=== PATIENT | female | born 1960 | race American Indian/Alaskan Native ===

== ENCOUNTER 2020-12-04 20:59 | Observation (INO) | payer OTHER ==
[2020-12-05] MEDS ORDERED: ASPIRIN 325 MG TAB PO ONE (00:59)
--- NOTE | 2020-12-05 01:37 | XRay Report ---
CHEST 2 VIEWS INDICATION / CLINICAL INFORMATION: Chest pain. COMPARISON: 2 views of the chest from 09/26/2016. FINDINGS: SUPPORT DEVICES: None. HEART / MEDIASTINUM: No significant abnormality. LUNGS / PLEURA: No significant pulmonary abnormality. No significant pleural effusion. No pneumothora x. ADDITIONAL FINDINGS: No significant additional findings. IMPRESSION: 1. No acute abnormality of the chest. Signer Name: Paco Melendez MD Signed: 12/05/2020 1:32 AM Workstation Name: [id number]
[2020-12-05 01:47] LABS: Basophils % (Auto) 0.4 % (0.0-1.8); Eosinophils # (Auto) 0.1 K/mm3 (0.0-0.4); Eosinophils % (Auto) 1.5 % (0.0-4.3); Hematocrit 42.7 % (30.3-42.9); Hemoglobin 14.3 gm/dl (10.1-14.3); Lymphocytes # (Auto) 2.2 K/mm3 (1.2-5.4); Lymphocytes % (Auto) 42.7 % (13.4-35.0); Mean Corpuscular HGB Conc 34 % (30-34); Mean Corpuscular Volume 89 fl (79-97); Monocytes # (Auto) 0.3 K/mm3 (0.0-0.8); Monocytes % (Auto) 5.4 % (0.0-7.3); Platelet Count 314 K/mm3 (140-440); Red Blood Count 4.82 M/mm3 (3.65-5.03); Red Cell Distribution Width 13.5 % (13.2-15.2)
[2020-12-05 02:08] LABS: Alanine Aminotransferase 12 units/L (7-56); Albumin 4.3 g/dL (3.9-5); BUN/Creatinine Ratio 16; Blood Urea Nitrogen 13 mg/dL (7-17); Calcium 9.5 mg/dL (8.4-10.2); Hemolysis Index 5
--- NOTE | 2020-12-05 06:41 | Emergency Department Report ---
ED General Adult HPI - General Chief complaint: Chest Pain Stated complaint: Headache, left arm weakness, now resolved, painless left eye redness PUI?: No Time Seen by Provider: 12/05/20 06:39 Source: patient, RN notes reviewed, old records reviewed Mode of arrival: Ambulatory Limitations: No Limitations - History of Present Illness Initial comments: This is a 60-year-old female. She is not known to myself previously. She reportedly has a history of thyroid disease, asthma and GERD. She presents to the ER with a few complaints. Her first complaint is headache, starting on Monday (today is Monday), occipital, not sudden or thunderclap in nature, not maximal in intensity, not described as the worst headache of her life, which was associated with left arm weakness and numbness. This is now resolved. There is no loss of vision. She feels lightheaded, like she might fall out or pass out. She has not lost cons ciousness. She feels slightly unsteady on her feet. She does not have focal extremity weakness at this time that she is aware of. Her next complaint is left lateral eye redness, nontraumatic, which is sudden. It is painless. She does not wear glasses or contact lenses currently. Constant, painless, does not radiate anywhere, does not have exacerbating or relieving factors. Patient is up-to-date with Covid vaccination series. Denies Covid symptomatology. -: Gradual, Sudden Location: head, eyes (Left eye) Radiation: non-radiation Consistency: constant (Left eye redness constant. Headache now resolved) Improves with: none Worsens with: none - Related Data Previous Rx's Medication Instructions Recorded Last Taken Type Pantoprazole [Protonix] 40 mg PO QDAY #30 tablet 09/29/16 Unknown Rx oxyCODONE /ACETAMINOPHEN [Percocet 1 tab PO Q4HR #10 tab 09/29/16 Unknown Rx 5/325] Cyclobenzaprine [Flexeril] 10 mg PO QHS PRN #10 tablet 04/18/18 Unknown Rx Ibuprofen [Motrin] 600 mg PO Q8H PRN #20 tablet 04/18/18 Unknown Rx Allergies Allergy/AdvReac Type Severity Reaction Status Date / Time No Known Allergies Allergy Verified 09/27/16 05:19 ED Review of Systems ROS: Stated complaint: WEAKNESS IN LEFT ARM/SHOULDER/EYE PAIN Other details as noted in HPI Constitutional: weakness (Global weakness), other (Denies loss of taste and smell.). denies: fever Eyes: denies: eye pain, eye discharge, vision change ENT: denies: epistaxis Respiratory: denies: cough Cardiovascular: denies: chest pain Gastrointestinal: nausea. denies: abdominal pain, vomiting Musculoskeletal: denies: back pain Neurological: headache, weakness, numbness, abnormal gait ED Past Medical Hx - Past Medical History Previous Medical History?: Yes Hx GERD: Yes Hx Asthma: Yes Additional medical history: Thyroid Disease - Surgical History Past Surgical History?: Yes Additional Surgical History: ectopic - Social History Smoking Status: Never Smoker Substance Use Type: None - Medications Home Medications: Home Medications Medication Instructions Recorded Confirmed Last Taken Type Pantoprazole [Protonix] 40 mg PO QDAY #30 tablet 09/29/16 Unknown Rx oxyCODONE /ACETAMINOPHEN [Percocet 1 tab PO Q4HR #10 tab 09/29/16 Unknown Rx 5/325] Cyclobenzaprine [Flexeril] 10 mg PO QHS PRN #10 tablet 04/18/18 Unknown Rx Ibuprofen [Motrin] 600 mg PO Q8H PRN #20 tablet 04/18/18 Unknown Rx ED Physical Exam - General Limitations: No Limitations General appearance: alert, anxious, obese - Head Head exam: Present: atraumatic, normocephalic - Eye Eye exam: Present: normal appearance, PERRL, EOMI, conjunctival injection (Left temporal conjunctival injection), other (Visual acuity intact to finger counting, color perception, reading at a close distance). Absent: nystagmus - ENT ENT exam: Present: normal exam, normal orophraynx, mucous membranes moist, normal external ear exam - Neck Neck exam: Present: normal inspection, full ROM. Absent: tenderness, meningismus - Respiratory Respiratory exam: Present: normal lung sounds bilaterally. Absent: respiratory distress, wheezes, rales, rhonchi, stridor, chest wall tenderness, accessory muscle use, decreased breath sounds, prolonged expiratory - Cardiovascular Cardiovascular Exam: Present: regular rate, normal rhythm, normal heart sounds. Absent: bradycardia, tachycardia, irregular rhythm, systolic murmur, diastolic murmur, rubs, gallop - GI/Abdominal GI/Abdominal exam: Present: soft. Absent: distended, tenderness, guarding, rebound, rigid, pulsatile mass - Extremities Exam Extremities exam: Present: normal inspection, full ROM, other (2+ pulses noted in the bilateral upper and lower extremities. There is no palpable cord. negative Homans sign. Muscular compartments are soft. The pelvis is stable.). Absent: pedal edema, calf tenderness - Back Exam Back exam: Present: normal inspection, full ROM. Absent: tenderness, CVA tenderness (R), CVA tenderness (L), paraspinal tenderness, vertebral tenderness - Neurological Exam Neurological exam: Present: alert (There is no past-pointing. There is no pronator drift. Left [id number] is clumsy. Right [id number] within normal limits), oriented X3, other (No facial droop. Tongue midline. Extraocular movements intact bilaterally. Facial sensation intact to light touch in V1, V2, V3 distribution bilaterally. 5 and a 5 strength in 4 extremities. Sensation intact to light touch in 4 extremities.) - Psychiatric Psychiatric exam: Present: anxious - Skin Skin exam: Present: warm, dry, intact, normal color. Absent: rash ED Course Vital Signs 12/05/20 12/05/20 00:26 07:46 Temperature 98.5 F Pulse Rate 90 76 Respiratory 18 16 Rate Blood Pressure 157/88 Blood Pressure 144/80 [Left] O2 Sat by Pulse 98 96 Oximetry - Reevaluation(s) Reevaluation #1: 12/05/20 07:19 Differential diagnosis, including the not limited to: Migraine headache, tension headache, cluster headache, complex migraine, subacute stroke, spontaneous left-sided subconjunctival hemorrhage. Assessment and plan: 60-year-old female with 2 complaints. Complaint #1, occipital headache, left-sided weakness and numbness, now resolv ed, with NIH score of 1. Patient is on day 3/4 of symptoms. Symptoms present for greater than 4.5 hours. Therefore, this patient is not a TPA candidate. Symptoms present for greater than 24 hours, NIH score less than 6, therefore, emergent CT angiogram head and neck not indicated. Obtain noncontrast CT scan of the brain. Perform swallow screen, and neurologic checks. Admit this patient to the medical service for presumed subacute stroke. Patient evaluated by stroke neurology, Dr. Rema Watts, Who has personally evaluated this patient, and agrees with this plan of care. Complete #2, left-sided subconjunctival hemorrhage. Supportive care, outpatient follow-up. Patient specifically denies chest pain to myself. We will admit this patient to the medical service if CT scan of the brain does not demonstrate any acute findings that would require transfer. I have discussed this plan of care with the patient, who has articulated understanding. 12/05/20 08:10 Dr Friedman to admit to [facility] head ct negative asa ordered ED Medical Decision Making - Lab Data Result diagrams: 12/05/20 01:14 12/05/20 01:14 Vital Signs 12/05/20 00:26 Temperature 98.5 F Pulse Rate 90 Respiratory 18 Rate Blood Pressure 157/88 O2 Sat by Pulse 98 Oximetry Lab Results 12/05/20 12/05/20 12/05/20 Range/Units 01:14 01:14 04:01 WBC 5.2 (4.5-11.0) K/mm3 RBC 4.82 (3.65-5.03) M/mm3 Hgb 14.3 (10.1-14.3) gm/dl Hct 42.7 (30.3-42.9) % MCV 89 (79-97) fl MCH 30 (28-32) pg MCHC 34 (30-34) % RDW 13.5 (13.2-15.2) % Plt Count 314 (140-440) K/mm3 Lymph % (Auto) 42.7 H (13.4-35.0) % [place] % (Auto) 5.4 (0.0-7.3) % Eos % (Auto) 1.5 (0.0-4.3) % Baso % (Auto) 0.4 (0.0-1.8) % Lymph # (Auto) 2.2 (1.2-5.4) K/mm3 [place] # (Auto) 0.3 (0.0-0.8) K/mm3 Eos # (Auto) 0.1 (0.0-0.4) K/mm3 Baso # (Auto) 0.0 (0.0-0.1) K/mm3 Seg Neutrophils % 50.0 (40.0-70.0) % Seg Neutrophils # 2.6 (1.8-7.7) K/mm3 Sodium 142 (137-145) mmol/L Potassium 4.1 (3.6-5.0) mmol/L Chloride 104.3 (98-107) mmol/L Carbon Dioxide 27 (22-30) mmol/L Anion Gap 15 mmol/L BUN 13 (7-17) mg/dL Creatinine 0.8 (0.6-1.2) mg/dL Estimated GFR > 60 ml/min BUN/Creatinine Ratio 16 % Glucose 120 H (65-100) mg/dL Calcium 9.5 (8.4-10.2) mg/dL Total Bilirubin 0.20 (0.1-1.2) mg/dL AST 12 (5-40) units/L ALT 12 (7-56) units/L Alkaline Phosphatase 75 (35-129) units/L Troponin T < 0.010 < 0.010 (0.00-0.029) ng/mL Total Protein 7.8 (6.3-8.2) g/dL Albumin 4.3 (3.9-5) g/dL Albumin/Globulin Ratio 1.2 % - EKG Data -: EKG Interpreted by Id EKG shows normal: sinus rhythm Rate: normal - EKG Data 12/05/20 07:17 EKG #1 interpreted at 12: 39 AM. Sinus rhythm, normal P wave axis. Normal intervals, poor R wave progression, abnormal EKG, not a STEMI. Appears to be nonspecific changes when compared to prior EKG from September 2016 EKG #2, interpreted at 07: 1 5 AM Sinus rhythm, with a normal P wave axis. Normal axis. Poor R wave progression. Low voltage. Abnormal EKG. Not a STEMI. Unchanged from prior EKG from earlier on today. Both EKGs appear to have nonspecific changes when compared to prior EKG from September 2016. Neither EKG today is a STEMI. - Radiology Data Radiology results: pending, report reviewed, image reviewed [facility] [address] [place] [address] XRay Report Signed Patient: MYCHAL JUAREZ MR#: [id number] 69 : 1960 Acct:[id number] Age/Sex: 60 / F ADM Date: 12/04/20 Loc: ED Attending Dr: Ordering Physician: ED DOC, MD Date of Service: 12/05/20 Procedure(s): XR chest routine 2V Accession Number(s): [id number] cc: ED DOC, Fluoro Time In Minutes: CHEST 2 VIEWS INDICATION / CLINICAL INFORMATION: Chest pain. COMPARISON: 2 views of the chest from 09/26/2016. FINDINGS: SUPPORT DEVICES: None. HEART / MEDIASTINUM: No significant abnormality. LUNGS / PLEURA: No significant pulmonary abnormality. No significant pleural effusion. No pneumothorax. ADDITIONAL FINDINGS: No significant additional findings. IMPRESSION: 1. No acute abnormality of the chest. Signer Name: Paco Melendez MD Signed: 12/05/2020 1:32 AM Workstation Name: [id number] Transcribed By: MN Dictated By: Paco Melendez MD Electronically Authenticated By: Paco Melendez MD Signed Date/Time: 12/05/20131 DD/ 1 CT HEAD WITHOUT CONTRAST INDICATION: lazo, left arm weakness, numbness, left leg weakness TECHNIQUE: All CT scans at this location are performed using CT dose reduction for ALARA by means of automated exposure control. COMPARISON: None available. FINDINGS: BRAIN: No hemorrhage or mass effect are seen. No evidence of acute infarction is noted. ORBITS: Normal as visualized. SOFT TISSUES OF HE AD: Normal. CALVARIUM: Normal. VISUALIZED PARANASAL SINUSES AND MASTOID AIR CELLS: Clear. ADDITIONAL FINDINGS: None. IMPRESSION: No acute intracranial abnormality. Signer Name: Zackary Ny MD Signed: 12/05/2020 7:02 AM Critical care attestation.: If time is entered above; I have spent that time in minutes in the direct care of this critically ill patient, excluding procedure time. ED Disposition Clinical Impression: Subconjunctival hemorrhage of left eye, Left leg weakness, History of headache, CVA (cerebral vascular accident) Disposition: OP ADMIT IP TO THIS HOSP Is pt being admited?: Yes Does the pt Need Aspirin: Yes Condition: Good Referrals: PRIMARY CARE, [Primary Care Provider] - 3-5 Days - Assessment Assessment Interval: Baseline - Level of Consciousness 1a. Level of Consciousness: alert/keenly responsive - LOC Questions 1b. LOC Questions: answers both correctly - LOC Command 1c. LOC Commands: performs tasks correctly - Best Gaze 2. Best Gaze: normal - Visual 3. Visual: no visual loss - Facial Palsy 4. Facial Palsy: normal symmetrical movement - Motor Arm 5a. Motor Arm Left: no drift 5b. Motor Arm Right: no drift - Motor Leg 6a. Motor Leg Left: no drift 6b. Motor Leg Right: no drift - Limb Ataxia 7. Limb Ataxia: present 1 limb (Left lower extremity) - Sensory 8. Sensory: normal - Best Language 9. Best Language: no aphasia - Dysarthria 10. Dysarthria: normal - Extinction and Inattention 11. Extinction/Inattention: no abnormality - Scoring Total Score: 1 Stroke Severity: Minor Stroke
--- NOTE | 2020-12-05 07:24 | Emergency Department Report ---
Blank Doc - Documentation Documentation: [facility] Consult Note # Demographics Consult Type: General Neurology Patient Location: Emergency Room First Name: Dinora Last Name: Dameon Date of : 1960 Age: 60 Gender: Female Time of Initial Page ( Time): 12/05/2020, 06:53 Time of Return Call ( Time): 12/05/2020, 06:53 # HPI History: 60 yo woman who presented with left arm weakness and headache, that all started on monday. Patient also notices some numbness around the left face. # Scores Time of exam and NIHSS ( Time): 12/05/2020, 07:04 Level of Consciousness 1a: [0] = Alert; keenly responsive LOC Questions 1b: [0] = Answers both questions correctly LOC Commands 1c: [0] = Performs both tasks correctly Best Gaze 2: [0] = Normal Visual 3: [0] = No visual loss Facial Palsy 4: [0] = Normal symmetrical movements Motor Arm Left 5a: [0] = No drift Motor Arm Right 5b: [0] = No drift Motor Leg Left 6a: [1] = Drift Motor Leg Right 6b: [0] = No drift Limb Ataxia 7: [0] = Absent Sensory 8: [0] = Normal Best Language 9: [0] = No aphasia Dysarthria 10: [0] = Normal Extinction and Inattention 11: [0] = No abnormality NIHSS Total: 1 # Assessment Impression: left sided weakness out of tpa window stroke is suspected. Other etiologies in differential include: cervical radiculopathy, MS, underlying brain mass. # Plan Thrombolytic/Intervention: NOT IV Thrombolysis or IA Intervention candidate Thrombolytic Exclusion: > 4.5 hours Target Blood Pressure: SBP < 220 Labs: CBC comprehensive metabolic panel lipid panel TSH ua Diagnostic Test: echo with bubble study Therapy/Evaluation: speech/swallow consultation DVT Prophylaxis: heparin 5000 units subcutaneously q 12 hours Other: consult on-site neurology service for full work-up and evaluation recommendations If patient has any neurological deterioration please call me back immediately I have discussed my recommendations with the referring provider Additional Recommendations: Admit for stroke work up MRI brain without contrast MR angiography head and neck without contrast If negative will need to pursue MRI of cervical spine. Start aspirin if CT head results as negative Disposition: admit # Logistics Telemedicine: Interactive 2 way audio and visual telecommunication technology was utilized during this visit
--- NOTE | 2020-12-05 08:07 | Cat Scan Report ---
CT HEAD WITHOUT CONTRAST INDICATION: lazo, left arm weakness, numbness, left leg weakness TECHNIQUE: All CT scans at this location are performed using CT dose reduction for ALARA by means of automated exposure control. COMPARISON: None available. FINDINGS: BRAIN: No hemorrhage or mass effect are seen. No evidence of acute infarction is noted. ORBITS: Normal as visualized. SOFT TISSUES OF HEAD: Normal. CALVARIUM: Normal. VISUALIZED PARANASAL SINUSES AND MASTOID AIR CELLS: Clear. ADDITIONAL FINDINGS: None. IMPRESSION: No acute intracranial abnormality. Signer Name: Zackary Ny MD Signed: 12/05/2020 8:02 AM Workstation Name: [id number]
[2020-12-05] MEDS ORDERED: ASPIRIN 81 MG TAB CHEW PO ONE (08:11)
[2020-12-05 09:42] LABS: Bilirubin,Urine NEG (Negative); Blood,Urine NEG (Negative); Color,Urine Yellow (Yellow); Mucus,Urine FEW /HPF; Protein,Urine <15 mg/dL mg/dL (Negative); RBC,Urine < 1.0 /HPF (0.0-6.0); Urobilinogen,Urine < 2.0 mg/dL (<2.0)
[2020-12-05] MEDS ORDERED: CYCLOBENZAPRINE 10 MG TAB PO PRN (11:46)
[2020-12-05] MEDS ORDERED: hydrALAZINE 20 MG/1 ML INJ IV PRN (11:47)
[2020-12-05] MEDS ORDERED: ACETAMINOPHEN 325 MG TAB PO PRN (11:47)
[2020-12-05] MEDS ORDERED: ONDANSETRON 4 MG/2 ML INJ IV PRN (11:48)
[2020-12-05] MEDS ORDERED: MAGNESIUM HYDROXIDE (MOM) ORAL LIQD UDC PO PRN (11:48)
[2020-12-05] MEDS ORDERED: METOCLOPRAMIDE 10 MG TAB PO PRN (11:48)
[2020-12-05] MEDS ORDERED: PROMETHAZINE 25 MG RECT SUPP PR PRN (11:48)
--- NOTE | 2020-12-05 11:51 | History and Physical Report ---
History of Present Illness Date of examination: 12/05/20 Date of admission: 12/05/20 08:11 Chief complaint: headache and left hand numbness History of present illness: This is a 60-year-old -[place] female with history of ?thyroid disease, asthma and GERD presented to the hospital with complaints of left-sided arm weakness and numbness for the past 3 days. 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 Her headache resolved subsequently but she continued to have left arm weakness and numbness. Patient also complains of left facial numbness and states that she is unable to put weight on her left leg. She first thought she might have a muscle spasm but her symptoms persisted. Today also she noticed her left lateral thigh redness which is sudden and painless, not associated with any blurred vision. Patient is up-to-date with Covid vaccination series. Patient was admitted to the hospital for possible stroke work-up. Her initial work-up in the ER showed normal CT head, pretty unremarkable serum chemistry. Patient is able to speak without any difficulty and does not endorse any swallowing difficulties Review of System: Constitutional: no fever, no chills, no weight loss Ears, eyes, nose, mouth and throat: no nasal congestion, no nasal discharge, no sinus pressure, no vision change, no red eye. Neck: No neck pain or rigidity. Cardiovascular: No chest pain, no orthopnea, no palpitations, no leg swelling Respiratory: No shortness of breath, no cough, no congestion, no wheezing Gastrointestinal: no abdominal pain, no nausea, no vomiting Genitourinary : no dysuria, no hematuria Musculoskeletal: no joint swelling or muscle ache Integumentary: no rash, no pruritis Neurological: no parathesias, +left hand numbness, no tingling Endocrine: no cold or heat intolerance, no polyuria or polydipsia Hematologic/Lymphatic: no easy bruising, no easy bleeding, no gland swelling Allergic/Immunologic: no urticaria, no angioedema. Past History Past Medical History: GERD, other (Asthma, arthritis) Past Surgical History: Other (Unilateral salpingo-oophorectomy) Social history: no significant social history. denies: smoking, alcohol abuse Family history: denies: no significant family history Medications and Allergies Allergies Allergy/AdvReac Type Severity Reaction Status Date / Time No Known Allergies Allergy Verified 09/27/16 05:19 Home Medications Medication Instructions Recorded Confirmed Last Taken Type Aspirin EC [Halfprin EC] 81 mg PO QDAY #30 tablet. 12/07/20 Unknown Rx Cyclobenzaprine [Flexeril 10 MG 10 mg PO QHS PRN #10 tablet 12/07/20 Unknown Rx TAB] Gabapentin 100 mg PO Q8HR #14 capsule 12/07/20 Unknown Rx Active Meds: Active Medications Acetaminophen (Acetaminophen 325 Mg Tab) 650 mg PO Q4H PRN PRN Reason: Pain MILD(1-3)/Fever >100.5/TATE Aspirin (Aspirin Ec 325 Mg Tab) 325 mg PO QDAY ADDIE Atorvastatin Calcium (Atorvastatin 40 Mg Tab) 40 mg PO QHS ADDIE Bisacodyl (Bisacodyl 10 Mg Rect Supp) 10 mg FL QDAY PRN PRN Reason: Constipation Cyclobenzaprine HCl (Cyclobenzaprine 10 Mg Tab) 10 mg PO QHS PRN PRN Reason: Muscle Spasm Docusate Sodium (Docusate Sodium 100 Mg Cap) 100 mg PO BID ADDIE Enoxaparin Sodium (Enoxaparin 40 Mg/0.4 Ml Inj) 40 mg SUB-Q QDAY@2200 ADDIE; Protocol Hydralazine HCl (Hydralazine 20 Mg/1 Ml Inj) 5 mg IV Q30MIN PRN PRN Reason: Hypertension Magnesium Hydroxide (Magnesium Hydroxide (Mom) Oral Liqd Udc) 30 ml PO Q4H PRN PRN Reason: Constipation Metoclopramide HCl (Metoclopramide 10 Mg Tab) 10 mg PO Q6H PRN PRN Reason: Nausea And Vomiting Ondansetron HCl (Ondansetron 4 Mg/2 Ml Inj) 4 mg IV Q8H PRN PRN Reason: Nausea And Vomiting Oxycodone/Acetaminophen (Oxycodone /Acetaminophen 5-325mg Tab) 1 tab PO Q4HR [facility] Pantoprazole Sodium (Pantoprazole 40 Mg Tab) 40 mg PO QDAY [facility] Promethazine HCl (Promethazine 25 Mg Rect Supp) 25 mg FL Q6H PRN PRN Reason: Nausea And Vomiting Sodium Chloride (Sodium Chloride 0.9% 10 Ml Flush Syringe) 10 ml INJ PRN PRN PRN Reason: LINE FLUSH Exam - Physical Exam Narrative exam: GENERAL: well-developed and well-nourished -[place] female lying on bed appeared to be in no discomfort. HEENT: Normocephalic. Atraumatic. No conjunctival congestion or icterus. Patient has moist mucous membranes. NECK: Supple. Trachea midline. CHEST/LUNGS: Clear to auscultated bilaterally, breathing nonlabored. No wheezes crackles or rhonchi. HEART/CARDIOVASCULAR: Regular in rate and rhythm. S1 and S2 positive. ABDOMEN: Abdomen is soft, nontender. Patient has normal bowel sounds. SKIN: There is no rash. Warm and dry. NEURO: No focal motor deficit. Follows command. MUSCULOSKELETAL: No joint effusion or tenderness. EXTRIMITY: No edema, no cyanosis or clubbing. PSYCH: Cooperative. - Constitutional Vitals: Temp Pulse Resp BP Pulse Ox 98.5 F 76 16 144/80 96 12/05/20 00:26 12/05/20 07:46 12/05/20 07:46 12/05/20 07:46 12/05/20 07:46 HEART Score - HEART Score Troponin: Troponin T < 0.010 ng/mL (0.00-0.029) 12/05/20 07:06 Results - Labs CBC & Chem 7: 12/05/20 01:14 12/05/20 01:14 Labs: Abnormal lab results 12/05/20 12/05/20 12/05/20 Range/Units 01:14 01:14 07:06 Lymph % (Auto) 42.7 H (13.4-35.0) % Glucose 120 H (65-100) mg/dL TSH 5.630 H (0.270-4.200) mlU/mL - Imaging and Cardiology CT Scan - head: report reviewed Assessment and Plan Possible acute CVA -- We will admit the patient to remote telemetry - We'll place on aspirin and statin, will consult neurology - CT scan of the head obtained in the ER and shows - We will get MRI of the head, carotid Doppler, 2-D echocardiogram - We will also get hemoglobin A1c level and fasting lipid panel - Allow permissive hypertension, will hold BP meds if patient is taking any at home - Consult PTOT and speech therapist - Keep the patient nothing by mouth for now, monitor blood glucose - Further management will be based on pending lab results and imaging studies History of asthma, scheduled nebulizer breathing treatment as needed History of GERD - We'll place on GI prophylaxis to avoid stress ulcer DVT prophylaxis - Place on DVT prophylaxis
[2020-12-05] MEDS ORDERED: oxyCODONE /ACETAMINOPHEN 5-325MG TAB PO PRN (12:34)
[2020-12-05] MEDS: DOCUSATE SODIUM 100 MG CAP PO SCH (22:21)
[2020-12-05] MEDS: ENOXAPARIN 40 MG/0.4 ML INJ SUB-Q SCH (22:22)
[2020-12-06 06:17] LABS: Chol/HDL Ratio 3.22 %
[2020-12-06] MEDS: ASPIRIN EC 325 MG TAB PO SCH (09:56)
[2020-12-06] MEDS: DOCUSATE SODIUM 100 MG CAP PO SCH ×2 (09:56→21:34)
[2020-12-06] MEDS: PANTOPRAZOLE 40 MG TAB PO SCH (09:56)
--- NOTE | 2020-12-06 14:24 | Electrocardiograph Report ---
[facility] Test Date: 2020-12-05 Test Time: 00:35:14 Pat Name: MYCHAL JUAREZ Department: Room: A480 Gender: F Compliance Officer: ALEXANDER : 1960 Requested By: LEWIS MONTES DE OCA Order Number: [id number] Reading MD: Yeni Meza Measurements Intervals [place] Rate: 80 P: 36 [place]: 134 QRS: 2 QRSD: 73 T: 36 QT: 368 QTc: 425 Interpretive Statements Sinus rhythm No previous ECG available for comparison Electronically Signed On 12-06-2020 14:24:50 EDT by Yeni Meza
--- NOTE | 2020-12-06 14:28 | Electrocardiograph Report ---
[facility] Test Date: 2020-12-05 Test Time: 07:15:06 Pat Name: MYCHAL JUAREZ Department: Room: A480 1 Gender: F Director Of Digital Platforms: CHINO : 1960 Requested By: LEWIS MONTES DE OCA Order Number: [id number] Reading MD: Yeni Meza Measurements Intervals [place] Rate: 72 P: 18 [place]: 145 QRS: 6 QRSD: 76 T: 6 QT: 391 QTc: 429 Interpretive Statements Sinus rhythm Low voltage, precordial leads Consider old anteroseptal infarct Compared to ECG 12/05/2020 00:35:14 No significant change Electronically Signed On 12-06-2020 14:27:42 EDT by Yeni Meza
--- NOTE | 2020-12-06 15:21 | Progress Note ---
Assessment and Plan Possible acute CVA --Continue aspirin and statin - CT scan of the head obtained in the ER and ahowed n acute processo - follow MRI/MRA of the head, 2-D echocardiogram - Consult PTOT --Placed on cardiac diet History of asthma, scheduled nebulizer breathing treatment as needed History of GERD - We'll place on GI prophylaxis to avoid stress ulcer DVT prophylaxis - Place on DVT prophylaxis Disposition: Pending MRI/MRA head and neck. Wait for PT eval. Discharge planning based on MRI results Subjective Date of service: 12/06/20 Interval history: Patient seen and examined. Medical records and medication list reviewed. No acute event overnight noted by the RN. Patient denies any chest pain or difficulty breathing. Patient is tolerating diet. Continue to complain of left hand and left leg numbness She is able to ambulate and no difficulty in speech and swallowing MRI brain pending Discussed plan of care at bedside with patient. Objective - Exam Narrative Exam: GENERAL: well-developed and well-nourished -[place] female lying on bed appeared to be in no discomfort. HEENT: Normocephalic. Atraumatic. No conjunctival congestion or icterus. Patient has moist mucous membranes. NECK: Supple. Trachea midline. CHEST/LUNGS: Clear to auscultated bilaterally, breathing nonlabored. No wheezes crackles or rhonchi. HEART/CARDIOVASCULAR: Regular in rate and rhythm. S1 and S2 positive. ABDOMEN: Abdomen is soft, nontender. Patient has normal bowel sounds. SKIN: There is no rash. Warm and dry. NEURO: No focal motor deficit. Follows command. MUSCULOSKELETAL: No joint effusion or tenderness. EXTRIMITY: No edema, no cyanosis or clubbing. PSYCH: Cooperative. - Constitutional Vitals: Vital Signs - 12hr 12/06/20 12/06/20 12/06/20 05:00 06:00 08:00 Temperature 97.9 F Pulse Rate 67 75 Pulse Rate [ 78 Apical] Pulse Rate [ 78 From Monitor] Respiratory 16 18 Rate Blood Pressure 112/67 O2 Sat by Pulse 98 97 Oximetry 12/06/20 11:13 Temperature 98.3 F Pulse Rate 74 Pulse Rate [ Apical] Pulse Rate [ From Monitor] Respiratory 18 Rate Blood Pressure 106/63 O2 Sat by Pulse 95 Oximetry - Labs CBC & Chem 7: 12/05/20 01:14 12/05/20 01:14 HEART Score - HEART Score Troponin: Troponin T < 0.010 ng/mL (0.00-0.029) 12/05/20 07:06
[2020-12-06] MEDS: ENOXAPARIN 40 MG/0.4 ML INJ SUB-Q SCH (21:34)
[2020-12-07] MEDS: ASPIRIN EC 325 MG TAB PO SCH (10:30)
[2020-12-07] MEDS: DOCUSATE SODIUM 100 MG CAP PO SCH ×2 (10:30→23:13)
[2020-12-07] MEDS: PANTOPRAZOLE 40 MG TAB PO SCH (10:30)
[2020-12-07] MEDS ORDERED: LORazepam 2 MG/ML VIAL IV ONE (12:00)
--- NOTE | 2020-12-07 13:52 | Magnetic Resonance Report ---
MR MRA/MRV head wo con, MR brain wo con INDICATION / CLINICAL INFORMATION: stroke. TECHNIQUE: Multiplanar, multisequence MRI of the brain. MRA of the head. 3-D/MIP reformats postprocessed. Percentage stenosis is determined by direct quantit ative measurements of distal internal carotid artery diameter compared with normal reference segments or by criteria similar to NASCET where applicable. COMPARISON: December 05, 2020 CT FINDINGS: BRAIN: Intracranial: No restricted diffusion. No hemorrhage. Ventricular caliber is normal. No extra-axial c ollection. No mass. No herniation. Orbits: No significant abnormality of visualized orbits. Sinuses/mastoid: No significant abnormality of visualized sinuses and mastoid air cells. Additional findings: None. MRA HEAD: Intracranial vertebral arteries: No occlusion or significant stenosis. Basilar artery: No occlusion or significant stenosis. Posterior cerebral arteries: No occlusion or significant stenosis. Intracranial internal carotid arteries: No occlusion or significant stenosis. Anterior cerebral arteries: No occlusion or significant stenosis. Middle cerebral arteries: No occlusion or significant stenosis. No aneurysm. Additional findings: None. IMPRESSION: 1. MRI Brain: No acute intracranial abnormality. 2. MRA Head: No occlusion or hemodynamically significant stenosis. Signer Name: Buck Lizama MD Signed: 12/07/2020 1:47 PM Workstation Name: [id number]
--- NOTE | 2020-12-07 14:51 | Discharge Summary ---
Providers - Providers Date of Admission: 12/05/20 08:11 Date of discharge: 12/07/20 Attending physician: YAJAIRA BARFIELD 12/05/20 11:48 Consult to Case Management [CONS] Routine Services Needed at Discharge: Phone Counselor Notified:: egg caser Consult to Dietitian/Nutrition [CONS] Routine Physician Instructions: Reason For Exam: Reason for Consult: Nutrition Recommendations Reason for Consult: Diet education Occupational Therapy Evaluate and Treat [CONS] Routine Comment: Reason For Exam: Neuro deficits Physical Therapy Evaluation and Treat [CONS] Routine Comment: Reason For Exam: Neuro deficits 12/05/20 11:51 Consult to Physician [CONS] Routine Comment: Consulting Provider: SABINA EDWARD Physician Instructions: Reason For Exam: cva 12/06/20 15:57 Speech Therapy Evaluation and Treat [CONS] Routine Reason For Exam: Neuro deficits Primary care physician: DIRECTOR PART Hospitalization Condition: Good Final Discharge Diagnosis (Prints w/discharge instructions): --CVA, ruled out. --Peripheral neuropathy. --Obesity Time spent for discharge: 34 minutes Core Measure Documentation - Palliative Care Palliative Care/ Comfort Measures: Not Applicable - Core Measures Any of the following diagnoses?: none Exam - Constitutional Vitals: Temp Pulse Resp BP Pulse Ox 98.1 F 81 15 133/76 97 12/07/20 07:38 12/07/20 13:03 12/07/20 13:03 12/07/20 07:38 12/07/20 13:03 Plan Activity: advance as tolerated Weight Bearing Status: Weight Bear as Tolerated Diet: low fat, low salt Additional Instructions: Follow-up with neurologist in 2 weeks Follow up with: VINOD BARNETT MD [Primary Care Provider] - 3-5 Days REYES SIMON MD [Staff Physician] - 7 Days Prescriptions: Cyclobenzaprine [Flexeril 10 MG TAB] 10 mg PO QHS PRN #10 tablet PRN Reason: Muscle Spasm Gabapentin 100 mg PO Q8HR #14 capsule Aspirin EC [Halfprin EC] 81 mg PO QDAY #30 tablet.
--- NOTE | 2020-12-07 15:08 | Consultation ---
History of Present Illness Consult date: 12/07/20 Chief complaint: headache and left hand numbness History of present illness: This is a 60-year-old -[place] female with history of ?thyroid disease, asthma and GERD presented to the hospital with complaints of left-sided arm weakness and numbness for the past 3 days. 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 Her headache resolved subsequently but she continued to have left arm weakness and numbness. Patient also complains of left facial numbness and states that she is unable to put weight on her left leg. She first thought she might have a muscle spasm but her symptoms persisted. Today also she noticed her left lateral thigh redness which is sudden and painless, not associated with any blurred vision. Patient is up-to-date with Covid vaccination series. Patient was admitted to the hospital for possible stroke work-up. Her initial work-up in the ER showed normal CT head, pretty unremarkable serum chemistry. Patient is able to speak without any difficulty and does not endorse any swallowing difficulties Reviewed the above complaints , the patient reports improvement in the symptoms of left upper extremity in form of left hand numbness . In addition the patient reports weakness in the left leg, the patient reports sleepiness . Past History Past Medical History: GERD, other (Asthma, arthritis) Past Surgical History: Other (Unilateral salpingo-oophorectomy) Social history: no significant social history. denies: smoking, alcohol abuse Family history: denies: no significant family history Medications and Allergies Allergies Allergy/AdvReac Type Severity Reaction Status Date / Time No Known Allergies Allergy Verified 09/27/16 05:19 Home Medications Medication Instructions Recorded Confirmed Last Taken Type Aspirin EC [Halfprin EC] 81 mg PO QDAY #30 tablet. 12/07/20 Unknown Rx Cyclobenzaprine [Flexeril 10 MG 10 mg PO QHS PRN #10 tablet 12/07/20 Unknown Rx TAB] Gabapentin 100 mg PO Q8HR #14 capsule 12/07/20 Unknown Rx Active Meds: Active Medications Acetaminophen (Acetaminophen 325 Mg Tab) 650 mg PO Q4H PRN PRN Reason: Pain MILD(1-3)/Fever >100.5/TATE Last Admin: 12/06/20 17:52 Dose: 650 mg Documented by: Aspirin (Aspirin Ec 325 Mg Tab) 325 mg PO QDAY [facility] Last Admin: 12/07/20 10:30 Dose: 325 mg Documented by: Atorvastatin Calcium (Atorvastatin 40 Mg Tab) 40 mg PO QHS [facility] Last Admin: 12/06/20 21:35 Dose: 40 mg Documented by: Bisacodyl (Bisacodyl 10 Mg Rect Supp) 10 mg AK QDAY PRN PRN Reason: Constipation Cyclobenzaprine HCl (Cyclobenzaprine 10 Mg Tab) 10 mg PO QHS PRN PRN Reason: Muscle Spasm Docusate Sodium (Docusate Sodium 100 Mg Cap) 100 mg PO BID [facility] Last Admin: 12/07/20 10:30 Dose: 100 mg Documented by: Enoxaparin Sodium (Enoxaparin 40 Mg/0.4 Ml Inj) 40 mg SUB-Q QDAY@2200 ADDIE; Protocol Last Admin: 12/06/20 21:34 Dose: 40 mg Documented by: Gabapentin (Gabapentin 100 Mg Cap) 100 mg PO Q8HR [facility] Hydralazine HCl (Hydralazine 20 Mg/1 Ml Inj) 5 mg IV Q30MIN PRN PRN Reason: Hypertension Magnesium Hydroxide (Magnesium Hydroxide (Mom) Oral Liqd Udc) 30 ml PO Q4H PRN PRN Reason: Constipation Metoclopramide HCl (Metoclopramide 10 Mg Tab) 10 mg PO Q6H PRN PRN Reason: Nausea And Vomiting Ondansetron HCl (Ondansetron 4 Mg/2 Ml Inj) 4 mg IV Q8H PRN PRN Reason: Nausea And Vomiting Oxycodone/Acetaminophen (Oxycodone /Acetaminophen 5-325mg Tab) 1 tab PO Q4H PRN PRN Reason: Pain, Moderate (4-6) Pantoprazole Sodium (Pantoprazole 40 Mg Tab) 40 mg PO QDAY [facility] Last Admin: 12/07/20 10:30 Dose: 40 mg Documented by: Promethazine HCl (Promethazine 25 Mg Rect Supp) 25 mg AK Q6H PRN PRN Reason: Nausea And Vomiting Sodium Chloride (Sodium Chloride 0.9% 10 Ml Flush Syringe) 10 ml IV PRN PRN PRN Reason: LINE FLUSH Last Admin: 12/06/20 21:34 Dose: 10 ml Documented by: Physical Examination - Vital Signs Vital Signs: Vital Signs Temp Pulse Resp BP Pulse Ox 98.5 F 90 18 157/88 98 12/05/20 00:26 12/05/20 00:26 12/05/20 00:26 12/05/20 00:26 12/05/20 00:26 - Physical Exam Narrative exam: The patient is alert , some drowsiness, the patient is able to move all 4 extremities, the patient is weak on the left upper and lower extremity , Gait is not tested . Results - Laboratory Findings CBC and BMP: 12/05/20 01:14 12/05/20 01:14 Abnormal Lab Findings: Abnormal Labs 12/05/20 12/05/20 12/05/20 01:14 01:14 07:06 Lymph % (Auto) 42.7 H Glucose 120 H TSH 5.630 H Assessment and Plan 1. Acute Left Upper and Lower Extremity weakness improving , my clinical suspicion is possibly a small ischemic event - even though MRI Brain seems ok per report. 2. I would strongly recommend to keep patient in hospital tonight and possible D/C in am if stable, if weak repeat CT/ MRI Brain in am . 3. Continue all Home Medications for now . 4. ASA 81 mg a day . 5. Call back with questions . Dr. Timothy POE
--- NOTE | 2020-12-07 15:42 | Progress Note ---
Assessment and Plan Possible acute CVA --Continue aspirin and statin - CT scan of the head obtained in the ER and ahowed n acute processo -Negative MRI/MRA of the head, 2-D echocardiogram showed preserved EF - Consult PTOT recommended acute rehab --neurology suggesting possible acute CVA eventhough MRI brain is negative --Placed on cardiac diet History of asthma, scheduled nebulizer breathing treatment as needed History of GERD - We'll place on GI prophylaxis to avoid stress ulcer DVT prophylaxis - Place on DVT prophylaxis Disposition: MRI/MRA head neck is unremarkable. But patient continued to have left-sided weakness and numbness. PT recommended acute rehab. Neurology recommended to monitor patient overnight and also be repeating CT MRI tomorrow morning if weakness continues. We'll cancel discharge order and continue to follow the patient. Subjective Date of service: 12/07/20 Interval history: Patient seen and examined. Medical records and medication list reviewed. No acute event overnight noted by the RN. Patient denies any chest pain or difficulty breathing. Patient is tolerating diet. Continue to complain of left hand and left leg numbness She is able to ambulate and no difficulty in speech and swallowing MRI brain showed no acute infract Discussed plan of care at bedside with patient. Objective - Exam Narrative Exam: GENERAL: well-developed and well-nourished -[place] female lying on bed appeared to be in no discomfort. HEENT: Normocephalic. Atraumatic. No conjunctival congestion or icterus. Patient has moist mucous membranes. NECK: Supple. Trachea midline. CHEST/LUNGS: Clear to auscultated bilaterally, breathing nonlabored. No wheezes crackles or rhonchi. HEART/CARDIOVASCULAR: Regular in rate and rhythm. S1 and S2 positive. ABDOMEN: Abdomen is soft, nontender. Patient has normal bowel sounds. SKIN: There is no rash. Warm and dry. NEURO: No focal motor deficit. Follows command. MUSCULOSKELETAL: No joint effusion or tenderness. EXTRIMITY: No edema, no cyanosis or clubbing. PSYCH: Cooperative. - Constitutional Vitals: Vital Signs - 12hr 12/07/20 12/07/20 12/07/20 05:00 06:00 07:38 Temperature 98.1 F Pulse Rate 72 83 Pulse Rate [ Apical] Pulse Rate [ From Monitor] Respiratory 18 19 Rate Blood Pressure 133/76 O2 Sat by Pulse 98 96 Oximetry 12/07/20 13:03 Temperature Pulse Rate Pulse Rate [ 81 Apical] Pulse Rate [ 81 From Monitor] Respiratory 15 Rate Blood Pressure O2 Sat by Pulse 97 Oximetry - Labs CBC & Chem 7: 12/05/20 01:14 12/05/20 01:14 HEART Score - HEART Score Troponin: Troponin T < 0.010 ng/mL (0.00-0.029) 12/05/20 07:06
[2020-12-07] MEDS: GABAPENTIN 100 MG CAP PO SCH (23:13)
[2020-12-07] MEDS: ENOXAPARIN 40 MG/0.4 ML INJ SUB-Q SCH (23:14)
[2020-12-08] MEDS: GABAPENTIN 100 MG CAP PO SCH ×2 (06:18→13:35)
[2020-12-08 09:55] VITALS: BP 126/83
[2020-12-08] MEDS: ASPIRIN EC 325 MG TAB PO SCH (10:15)
[2020-12-08] MEDS: DOCUSATE SODIUM 100 MG CAP PO SCH (10:15)
[2020-12-08] MEDS: PANTOPRAZOLE 40 MG TAB PO SCH (10:15)
--- NOTE | 2020-12-08 14:04 | Discharge Summary ---
Providers - Providers Date of Admission: 12/05/20 08:11 Date of discharge: 12/08/20 Attending physician: YAJAIRA BARFIELD 12/05/20 11:48 Consult to Case Management [CONS] Routine Services Needed at Discharge: Tap Grinder Notified:: supervisor case loading Consult to Dietitian/Nutrition [CONS] Routine Physician Instructions: Reason For Exam: Reason for Consult: Nutrition Recommendations Reason for Consult: Diet education Occupational Therapy Evaluate and Treat [CONS] Routine Comment: Reason For Exam: Neuro deficits Physical Therapy Evaluation and Treat [CONS] Routine Comment: Reason For Exam: Neuro deficits 12/05/20 11:51 Consult to Physician [CONS] Routine Comment: Consulting Provider: SABINA EDWARD Physician Instructions: Reason For Exam: cva 12/06/20 15:57 Speech Therapy Evaluation and Treat [CONS] Routine Reason For Exam: Neuro deficits Primary care physician: INVENTORY CONTROL COORDINATOR Hospitalization Condition: Good Hospital course: This is a 60-year-old -[place] female with history of ?thyroid disease, asthma and GERD presented to the hospital with complaints of left-sided arm and leg weakness and numbness for the past 3 days. Patient is up-to-date with Covid vaccination series. Patient was admitted to the hospital for possible stroke work-up. Her initial work-up in the ER showed normal CT head, pretty unremarkable serum chemistry. MRI and MRA showed no acute process. 2D echo showed preserved EF. Neurology was consulted and recommended to monitor the patient for any worsening symptoms even though MRI/MRA was negative per neurology patient possibly had small ischemic stroke. Patient was evaluated by physical therapy initially recommended acute rehab then as her symptom improved recommended outpatient PT OT. Discharge plan and management was thoroughly discussed with the patient. Her thyroid T4 level was normal. Patient was then discharged home in stable condition with outpatient PT OT and outpatient neurology follow-up. Disposition: [id number] HOME UNDER HOME [facility] Final Discharge Diagnosis (Prints w/discharge instructions): Possible acute CVA. Asthma. GERD. Obesity Time spent for discharge: 34 minutes Core Measure Documentation - Palliative Care Palliative Care/ Comfort Measures: Not Applicable - Core Measures Any of the following diagnoses?: stroke - Stroke Discharge Requirements Statin for LDL = or >70 mg/dl on DC: Yes Anticoag for atrial fib/atrial flutter: Not Applicable Antithrombotic for ischemic stroke: Yes Exam - Physical Exam Narrative exam: GENERAL: well-developed and well-nourished -[place] female lying on bed appeared to be in no discomfort. HEENT: Normocephalic. Atraumatic. No conjunctival congestion or icterus. Patient has moist mucous membranes. NECK: Supple. Trachea midline. CHEST/LUNGS: Clear to auscultated bilaterally, breathing nonlabored. No wheezes crackles or rhonchi. HEART/CARDIOVASCULAR: Regular in rate and rhythm. S1 and S2 positive. ABDOMEN: Abdomen is soft, nontender. Patient has normal bowel sounds. SKIN: There is no rash. Warm and dry. NEURO: No focal motor deficit. Follows command. MUSCULOSKELETAL: No joint effusion or tenderness. EXTRIMITY: No edema, no cyanosis or clubbing. PSYCH: Cooperative. - Constitutional Vitals: Temp Pulse Resp BP Pulse Ox 98.2 F 74 16 126/83 97 12/08/20 08:54 12/08/20 11:42 12/08/20 11:42 12/08/20 08:54 12/08/20 11:42 Plan Activity: advance as tolerated Weight Bearing Status: Weight Bear as Tolerated Diet: low fat, low salt Additional Instructions: f/u with neurologist in one week Follow up with: PRIMARY CAREMD [Primary Care Provider] - 3-5 Days REYES SIMON MD [Staff Physician] - 7 Days Prescriptions: Cyclobenzaprine [Flexeril 10 MG TAB] 10 mg PO QHS PRN #10 tablet PRN Reason: Muscle Spasm AtorvaSTATin [Lipitor] 40 mg PO QHS #30 tablet Gabapentin 100 mg PO Q8HR #14 capsule Aspirin EC [Halfprin EC] 81 mg PO QDAY #30 tablet. Other Discharge Orders: Physicial Therapy (Amb) Location: None Selected
== END 2020-12-08 16:24 | disposition home health service (06) ==
LOC: ED 20:59 → 4A 12-05 08:11
PROVIDERS: ADMIT Internal Medicine; ATTEND Internal Medicine
DX: I63.9 Cerebral infarction, unspecified (principal); J45.909 Unspecified asthma, uncomplicated; K21.9 Gastro-esophageal reflux disease without esophagitis; E07.9 Disorder of thyroid, unspecified; M19.90 Unspecified osteoarthritis, unspecified site; H11.32 Conjunctival hemorrhage, left eye; M62.81 Muscle weakness (generalized); R29.898 Other symptoms and signs involving the musculoskeletal system; R29.701 NIHSS score 1; F80.89 Other developmental disorders of speech and language; R51.9 Headache, unspecified; Z98.890 Other specified postprocedural states; Z79.82 Long term (current) use of aspirin; Z79.899 Other long term (current) drug therapy; Z87.898 Personal history of other specified conditions
CPT/HCPCS: 36415; 70450; 70544; 70551; 71046; 80053; 80061; 81001; 82550; 83735; 84439; 84443; 84484; 85025; 92523; 92610; 93005; 93306; 96372; 96374; 97163; 97165; 99285; A9270; G0378; J1650; J2060

== ENCOUNTER → 2021-02-18 | Outpatient (CLI) | payer OTHER | END | disposition home or self-care (01) | LOC: SLR 11:00 | PROVIDERS: ATTEND Specialist | DX: G47.30 Sleep apnea, unspecified (principal) | CPT/HCPCS: 95810 ==

== ENCOUNTER 2021-03-10 11:00 | Outpatient (CLI) | payer OTHER | END 2021-03-10 11:01 | disposition home or self-care (01) | LOC: SLR 11:00 | PROVIDERS: ATTEND Specialist | DX: G47.33 Obstructive sleep apnea (adult) (pediatric) (principal) | CPT/HCPCS: 95811 ==